=== PATIENT | female | born 1935 | race Caucasian/White ===

== ENCOUNTER → 2018-08-15 05:50 | Outpatient (CLI) | payer MEDICARE, SELFPAY ==
--- NOTE | 2018-08-15 12:22 | STRESSREP ---
Stress Test Report Pharmacologic myocardial perfusion stress test. Next 83-year-old lady with a history of abnormal EKG. Resting EKG demonstrates normal sinus rhythm with a rate of 75 bpm normal intervals and noted resting blood pressure 138/84 mmHg. 0.4 mg regadenoson was infused per usual protocol followed by rapid intravenous saline flush injection continuous EKG monitoring was performed. Patient maintained sinus rhythm throughout the recording. At rest with nonspecific ST-T wave changes noted with no meet the criteria for ischemia at peak infusion nonspecific ST-T wave changes were noted with no meet the criteria for ischemia. The resting blood pressure 138/84 with a final blood pressure of 136/70 mmHg. Myocardial perfusion protocol. 11.2 mCi of technetium 99m sestamibi was injected at rest. 0.4 mg of regadenoson was infused per usual protocol peak infusion 31.9 mCi of technetium 99m sestamibi was injected stress images were obtained stress and rest images were reconstructed and compared in the short axis vertical long horizontal long axis. Gated images were also obtained Perfusion SPECT analysis: Review of the stress images demonstrate normal uptake of tracer noted in all areas of the myocardium. The resting images similarly demonstrate normal uptake of tracer noted in all areas of the myocardium. No areas of reversibility are noted suggest ischemia. Gated SPECT analysis: The gated ejection fraction is noted to be 85%. Conclusion: Normal pharmacologic myocardial perfusion stress test. Preserved ejection fraction.
== END ==
PROVIDERS: Family Provider Preventive Medicine Occupational Medicine; PCP Preventive Medicine Occupational Medicine; Referring Provider Preventive Medicine Occupational Medicine; Visit Provider Preventive Medicine Occupational Medicine
DX: R94.31 Abnormal electrocardiogram [ECG] [EKG] (principal)
CPT/HCPCS: 78452; 93017; A9500; A4216; J2785